=== PATIENT | female | born 1970 | race Caucasian/White ===

== ENCOUNTER 2018-01-04 19:41 | Inpatient (IN) | payer OTHER ==
[~2018-01-04] VITALS: Ht 157.5 cm; Wt 82.5 kg
[2018-01-04] MEDS ORDERED: HYDROCODONE/ACETAMIN 5/325MG TAB PO STA (20:16)
[2018-01-04] MEDS ORDERED: ONDANSETRON 4MG OD TAB PO ONE (20:30)
--- NOTE | 2018-01-04 20:42 | DIAGNOSTIC IMAGING REPORT ---
CHEST ONE VIEW PORTABLE CLINICAL HISTORY: severe hypertension COMPARISON STUDY: No previous studies for comparison. FINDINGS: The cardiac and mediastinal contours are normal. There is no evidence of focal pulmonary consolidation. There is no evidence of failure. No pleural effusions are visualized.[ IMPRESSION: No active disease in the chest. Electronically signed by: Bernard Blackmon M.D. 01/04/2018 8:41 PM Dictated Date/Time: 01/04/2018 8:41 PM
[2018-01-04] MEDS ORDERED: CETI10TA10 PO (20:52)
[2018-01-04 20:57] LABS: HEMATOCRIT 39.5 % (37-47); HEMOGLOBIN 14.2 g/dL (12.0-16.0); LYMPH % 5.6 %; LYMPH ABS # 0.67 K/uL (1.2-3.4); MEAN CELL VOLUME 81.3 fL (80-100); MEAN CORPUSCULAR HEMOGLOBIN 29.2 pg (25-34); MEAN CORPUSCULAR HGB CONC 35.9 g/dl (32-36); MEAN PLATELET VOLUME 10.1 fL (7.4-10.4); MONO % 2.4 %; MONO ABS # 0.28 K/uL (0.11-0.59); NEUT % 91.2 %; NEUT ABS # 10.81 K/uL (1.4-6.5); PLATELET COUNT 225 K/uL (130-400); RED CELL DISTRIBUTION WIDTH CV 13.3 % (11.5-14.5); RED CELL DISTRIBUTION WIDTH SD 39.3 fL (36.4-46.3); WHITE BLOOD COUNT 11.86 K/uL (4.8-10.8)
[2018-01-04 21:11] LABS: INR 0.9 (0.9-1.1); PTT PATIENT 22.5 SECONDS (21.0-31.0)
[2018-01-04 21:45] LABS: ALBUMIN 3.9 gm/dl (3.4-5.0); ALKALINE PHOSPHATASE 108 U/L (45-117); ALT/SGPT 155 U/L (12-78); BLOOD UREA NITROGEN 13 mg/dl (7-18); CALCIUM 9.6 mg/dl (8.5-10.1); CARBON DIOXIDE 20 mmol/L (21-32); CREATININE 1.22 mg/dl (0.60-1.20); GLUCOSE 485 mg/dl (70-99); LIPASE 139 U/L (73-393); SODIUM 134 mmol/L (136-145); TOTAL PROTEIN 7.8 gm/dl (6.4-8.2)
[2018-01-04 22:09] LABS: AST/SGOT 72 U/L (15-37); POTASSIUM 4.5 mmol/L (3.5-5.1)
[2018-01-04] MEDS ORDERED: SODIUM CHLORIDE 0.9% 1000ML 1,000 ML IV STA (22:28)
[2018-01-04] MEDS ORDERED: NovoLIN-R INSULIN PER UNIT CHARGE IV STA (22:28)
[2018-01-04] MEDS ORDERED: LISINOPRIL/HCTZ 10/12.5MG TAB PO STA (22:28)
[2018-01-05] VITALS (8 sets, daily range): BP systolic 118–149; BP diastolic 74–92; PULSE 71–87; TEMP 36.5–36.9; O2SAT 93–97; Ht 157.5 cm; Wt 82.5 kg
--- NOTE | 2018-01-05 00:06 | EMERGENCY ROOM VISIT NOTE ---
History Report prepared by Linda: Cori Combs Under the Supervision of: Dr. Kennedy Brizuela M.D. First contact with patient: 20:10 Chief Complaint: HYPERTENSION Stated Complaint: HIGH BP History of Present Illness The patient is a 47 year old female who presents to the Emergency Room with complaints of hypertension beginning today. The patient states that she had a torn rotator cuff surgery repair this morning done [place] [facility] [place] Per family, the patient's blood pressure was high prior to surgery at 214/120. Her family reports that the patient was given blood pressure medication through her IV when she was under during surgery. Per family, the patient was then told to follow up with her doctor for her hypertension. The patient states that she is usually normotensive and that she does not take medications for hypertension. Her family states that he took the patient's blood pressure a little while ago and that she was 220//130. Per family, the patient called [facility] and was referred here. Per family, the patient has been on Tramadol for pain. The patient states that she was sick 4-5 days ago and states that it may have been secondary to the Tramadol. She states that she was dizzy and had a headache a couple of days ago. She reports that she currently has a headache but did not have one prior to her surgery. She states that she was supposed to take hydrocodone at 1900 for her pain but that she did not take it before she left. She reports a family history of hypertension. Pt denies LOC, fevers, chills, diaphoresis, visual changes, neck pain, chest pain, breathing difficulties, nausea, vomiting, abdominal pain, back pain, numbness, weakness, lymphadenopathy , rash, or other complaints. Source of History: patient, family Onset: today Position: other (generalized) Quality: other (hypertension) Associated Symptoms: + headache, No fevers Note: dizziness Review of Systems See HPI for pertinent positives and negatives. A total of ten systems were reviewed and were otherwise negative. Past Medical & Surgical Medical Problems: (1) Asthma Surgical Problems: (1) S/P cholecystectomy (2) S/P rotator cuff repair (3) S/P tonsillectomy Family History Hypertension Social History Smoking Status: Never Smoker Marital Status: Current/Historical Medications Scheduled Cetirizine Hcl (Zyrtec), 10 MG PO DAILY Allergies Uncoded Allergies: NONE (Allergy, Mild, NONE, 11/21/09) UNKNOWN (Allergy, Unknown, 07/25/02) Physical Exam Vital Signs Date Time Temp Pulse Resp B/P (MAP) Pulse Ox O2 Delivery O2 Flow Rate FiO2 01/05/18 00:31 92 14 130/93 01/05/18 00:21 90 15 01/05/18 00:16 89 18 01/05/18 00:06 87 25 01/05/18 00:01 89 17 145/86 01/04/18 23:51 88 21 01/04/18 23:46 90 20 01/04/18 23:36 91 17 01/04/18 23:31 89 19 141/85 01/04/18 23:21 91 14 01/04/18 23:16 93 18 01/04/18 23:09 148/92 01/04/18 23:08 94 20 148/92 97 Room Air 01/04/18 23:06 93 18 01/04/18 23:01 90 21 01/04/18 22:51 94 19 01/04/18 22:41 93 21 01/04/18 22:36 96 16 01/04/18 22:26 94 16 96 Room Air 01/04/18 22:21 96 20 01/04/18 22:11 100 15 162/101 96 Room Air 01/04/18 22:06 96 20 01/04/18 21:56 98 21 01/04/18 21:51 97 18 01/04/18 21:41 99 25 01/04/18 21:36 99 23 01/04/18 21:26 101 19 01/04/18 21:21 99 27 01/04/18 21:16 104 01/04/18 20:25 97 Room Air 01/04/18 20:25 97 Room Air 01/04/18 19:53 36.9 123 18 195/104 96 Room Air Physical Exam GENERAL: Awake, alert, well-appearing, in no distress HENT: Normocephalic, atraumatic. Oropharynx unremarkable. EYES: Normal conjunctiva. Sclera non-icteric. NECK: Supple. No nuchal rigidity. FROM. No masses. RESPIRATORY: Clear to auscultation. No wheezes. No rales. Normal respiratory effort. CARDIAC: Normal rate. Normal rhythm. No murmurs. No rubs. Extremities warm and well perfused. Pulses equal. No JVD. GI: Soft, non-distended. No tenderness to palpation. No rebound or guarding. No masses. RECTAL: Deferred. MUSCULOSKELETAL: Atraumatic. Chest examination reveals no tenderness. The back is symmetrical on inspection without obvious abnormality. There is no CVA tenderness to palpation. No joint edema. UPPER EXTREMITIES: Right upper extremity in sling. Decreased sensation in right upper extremity. LOWER EXTREMITIES: Calves are equal size bilaterally and non-tender. No edema. No discoloration. NEURO: Normal sensorium. No sensory or motor deficits noted. SKIN: No rash or jaundice noted. Medical Decision & Procedures ER Provider Diagnostic Interpretation: Radiology results as stated below per my review and radiologist interpretation: CHEST ONE VIEW PORTABLE CLINICAL HISTORY: severe hypertension COMPARISON STUDY: No previous studies for comparison. FINDINGS: The cardiac and mediastinal contours are normal. There is no evidence of focal pulmonary consolidation. There is no evidence of failure. No pleural effusions are visualized.[ IMPRESSION: No active disease in the chest. Electronically signed by: Bernard Blackmon M.D. 01/04/2018 8:41 PM Dictated Date/Time: 01/04/2018 8:41 PM Laboratory Results 01/04/18 20:20 Red Blood Count 4.86, Mean Corpuscular Volume 81.3, Mean Corpuscular Hemoglobin 29.2, Mean Corpuscular Hemoglobin Concent 35.9, Mean Platelet Volume 10.1, Neutrophils (%) (Auto) 91.2, Lymphocytes (%) (Auto) 5.6, Monocytes (%) (Auto) 2.4, Eosinophils (%) (Auto) 0.0, Basophils (%) (Auto) 0.0, Neutrophils # (Auto) 10.81, Lymphocytes # (Auto) 0.67, Monocytes # (Auto) 0.28, Eosinophils # (Auto) 0.00, Basophils # (Auto) 0.00 01/04/18 23:45 Test 01/04/18 20:20 01/04/18 23:45 01/05/18 01:01 White Blood Count 11.86 K/uL (4.8-10.8) Red Blood Count 4.86 M/uL (4.2-5.4) Hemoglobin 14.2 g/dL (12.0-16.0) Hematocrit 39.5 % (37-47) Mean Corpuscular Volume 81.3 fL (80-100) Mean Corpuscular Hemoglobin 29.2 pg (25-34) Mean Corpuscular Hemoglobin Concent 35.9 g/dl (32-36) Platelet Count 225 K/uL (130-400) Mean Platelet Volume 10.1 fL (7.4-10.4) Neutrophils (%) (Auto) 91.2 % Lymphocytes (%) (Auto) 5.6 % Monocytes (%) (Auto) 2.4 % Eosinophils (%) (Auto) 0.0 % Basophils (%) (Auto) 0.0 % Neutrophils # (Auto) 10.81 K/uL (1.4-6.5) Lymphocytes # (Auto) 0.67 K/uL (1.2-3.4) Monocytes # (Auto) 0.28 K/uL (0.11-0.59) Eosinophils # (Auto) 0.00 K/uL (0-0.5) Basophils # (Auto) 0.00 K/uL (0-0.2) RDW Standard Deviation 39.3 fL (36.4-46.3) RDW Coefficient of Variation 13.3 % (11.5-14.5) Immature Granulocyte % (Auto) 0.8 % Immature Granulocyte # (Auto) 0.10 K/uL (0.00-0.02) Prothrombin Time 9.6 SECONDS (9.0-12.0) Prothromb Time International Ratio 0.9 (0.9-1.1) Activated Partial Thromboplast Time 22.5 SECONDS (21.0-31.0) Partial Thromboplastin Ratio 0.9 Urine Color YELLOW Urine Appearance CLEAR (CLEAR) Urine pH 5.0 (4.5-7.5) Urine Specific [place] 1.031 (1.000-1.030) Urine Protein NEG (NEG) Urine Glucose (UA) 3+ (NEG) Urine Ketones 1+ (NEG) Urine Occult Blood NEG (NEG) Urine Nitrite NEG (NEG) Urine Bilirubin NEG (NEG) Urine Urobilinogen NEG (NEG) Urine Leukocyte Esterase NEG (NEG) Total Bilirubin 0.6 mg/dl (0.2-1) Direct Bilirubin 0.2 mg/dl (0-0.2) Aspartate Amino Transf (AST/SGOT) 72 U/L (15-37) Alanine Aminotransferase (ALT/SGPT) 155 U/L (12-78) Alkaline Phosphatase 108 U/L (45-117) Troponin I < 0.015 ng/ml (0-0.045) Total Protein 7.8 gm/dl (6.4-8.2) Albumin 3.9 gm/dl (3.4-5.0) Lipase 139 U/L (73-393) Thyroid Stimulating Hormone (TSH) 0.465 uIu/ml (0.300-4.500) Anion Gap 12.0 mmol/L (3-11) Est Creatinine Clear Calc Drug Dose 72.5 ml/min Estimated GFR () 82.7 Estimated GFR (Non- 71.3 BUN/Creatinine Ratio 11.6 (10-20) Calcium Level 8.5 mg/dl (8.5-10.1) Laboratory results reviewed by me Medications Administered Medications (Trade) Dose Ordered Sig/Carin Route Start Time Stop Time Status Last Admin Dose Admin Acetaminophen/ Hydrocodone Bitart (Jasper 5/325 Tab) 1 tab NOW STAT PO 01/04/18 20:16 01/04/18 20:17 DC 01/04/18 20:25 1 TAB Ondansetron HCl (Zofran Odt) 4 mg ONE ONCE PO 01/04/18 20:30 01/04/18 20:31 DC 01/04/18 20:24 4 MG Sodium Chloride 1,000 ml @ 999 mls/hr Q1H1M STAT IV 01/04/18 22:28 01/04/18 23:28 DC 01/04/18 22:46 999 MLS/HR Insulin Human Regular (novoLIN-R U-100 PER UNIT) 10 units NOW STAT IV 01/04/18 22:28 01/04/18 22:29 DC 01/04/18 22:45 10 UNITS HCTZ/Lisinopril (Prinzide 10-12.5MG Tab) 1 tab NOW STAT PO 01/04/18 22:28 01/04/18 22:29 DC 01/04/18 22:45 1 TAB Hydromorphone HCl (Dilaudid Inj) 0.5 mg NOW STAT IV 01/05/18 00:56 01/05/18 00:57 DC 01/05/18 01:00 0.5 MG ECG Per My Interpretation Indication: other (hypertension) Rate (beats per minute): 106 Rhythm: sinus tachycardia Findings: Q waves (Septal), other (left ventricular hypertrophy, no ST elevation, no ST depression, no PACs, no PVCs) ED Course 2011: The patient was evaluated in room C6. A complete history and physical exam was performed. 2016: Ordered Jasper 5/325 1 tab PO. 2029: Ordered Zofran Odt 4 mg PO. 2208: I checked on the patient. I discussed with Dr. Garcia who said that the patient can be started on Lisinopril, hydrochlorothiazide 10/12.5 and have the patient follow up in clinic. I reviewed her chart from an outpatient clinic and she has had elevated blood pressure over the last year. 8: Ordered Lisinopril/HCTZ 1 tab PO, Insulin Human Regular 10 units IV, and Sodium Chloride 1000 ml @ 999 mls/hr IV. 2245: I checked on the patient. She is good with the plan as far as medications go. 0030: Upon reexamination, the patient was resting. I discussed the test results and treatment plan with her. The patient will be evaluated for further management. Medical Decision Prior records/ancillary studies reviewed regarding the history above. Triage Nursing notes reviewed and agree them. Additional history obtained from the family. The patient's history was concerning for hypertension and recent surgery. Differential diagnosis: Etiologies such as hypertensive urgency, hypertensive emergency, benign hypertension, cardiovascular pathology, pheochromocytoma, electrolyte abnormality, renal disease, endorgan damage, as well as others were entertained. Physical examination: As above. ER treatment provided: Oral hydrocodone On reassessment the patient felt better. IV normal saline hydration IV insulin 10 units Oral lisinopril 10 mg/hydrochlorothiazide 12.5 mg Diagnostic interpretation by me: The electrocardiogram was negative for pathologic change. The labs revealed a mild leukocytosis on CBC. Chemistry panel revealed moderate hyperglycemia. The patient has no known history of diabetes but does have a strong family history. She was on steroids over a week ago. The patient had a mildly low CO2 and slightly elevated anion gap. Her beta hydroxybutyrate was minimally elevated. Imaging studies: Chest x-ray as above The patient has hypertension. Record review indicates that she has had elevated blood pressure measurements for over 10 years. The patient has an elevated blood glucose as well. Findings are concerning that she has diabetes. She has been recently on steroids which could affect her blood glucose. She was hydrated and given IV insulin. The patient had a repeat chemistry panel performed. I did discuss her case with the [facility] hospitalist, Dr. Garcia for review of her outpatient medical records. The patient had blood pressure measurements in the 140s last year. She will need close clinic follow-up. We did discuss her hypertension and I felt that initiation of treatment based upon her record review was warranted and he agreed. He recommended lisinopril 10 mg/ hydrochlorothiazide 12.5 mg combination pill. I think this is very reasonable given the fact that her chemistry panel also revealed hyperglycemia. I discussed this with the patient and her and they felt very comfortable. The patient had repeat labs performed after the hydration and insulin. She was still found to have a low CO2 and elevated anion gap. She was still hyperglycemic. This is concerning. I discussed this with her even more. She has been experiencing polyuria and polydipsia this afternoon since her surgery. She has had the symptoms continue this evening here in the emergency department. Given the findings I am concerned about early DKA and talk to her and her about treatment in the hospital. They were comfortable with this plan. I did discuss this with Dr. Garcia and he was in agreement. The patient was evaluated in the ER for further management. Medication Reconcilliation Current Medication List: was personally reviewed by me Blood Pressure Screening Patient's blood pressure: Elevated blood pressure will be monitored by hospitalist Consults Time Called: 0020 Consulting Physician: Dr. Garcia-Kaden Returned Call: 0030 Discussed the patient's case. The patient will be evaluated for further treatment and disposition. Impression Primary Impression: DKA (diabetic ketoacidoses) Additional Impression: HTN (hypertension) Scribe Attestation The scribe's documentation has been prepared under my direction and personally reviewed by me in its entirety. I confirm that the note above accurately reflects all work, treatment, procedures, and medical decision making performed by me. Departure Information Dispostion Being Evaluated By Hospitalist Patient Instructions My [facility] Health Problem Qualifiers
[2018-01-05 00:13] LABS: CALCIUM 8.5 mg/dl (8.5-10.1); CREATININE 0.95 mg/dl (0.60-1.20); POTASSIUM 4.2 mmol/L (3.5-5.1)
[2018-01-05] MEDS ORDERED: HYDROmorphone INJ 0.5 MG/0.5 ML SYR IV STA (00:56)
[2018-01-05] MEDS ORDERED: SODIUM CHLORIDE 0.9% 1000ML 1,000 ML IV SCH ×2 (02:44→04:52)
[2018-01-05] MEDS ORDERED: ONDANSETRON INJ 2 MG/ML 2 ML VIAL IV PRN (02:45)
[2018-01-05] MEDS ORDERED: ALUMINUM/MAGNESIUM/SIMETH (MAALOX MAX) 30 ML UDC PO PRN (02:45)
[2018-01-05] MEDS ORDERED: ACETAMINOPHEN 325 MG TAB PO PRN (02:45)
[2018-01-05] MEDS ORDERED: NITROGLYCERIN 0.4 MG SL PER TAB CHARGE SL PRN (02:45)
[2018-01-05] MEDS ORDERED: POLYETHYLENE (MIRALAX) 17 GM PACK PO PRN (02:45)
[2018-01-05] MEDS ORDERED: ALBUTEROL HFA 8 GM INHALER INH PRN (03:00)
[2018-01-05] MEDS ORDERED: INSULIN ASPART 100 UNITS/ML 3 ML PEN SC STA ×3 (03:37→04:02)
[2018-01-05] MEDS ORDERED: INSULIN GLARGINE SOLOSTAR 100 UNITS/ML 3 ML PEN SC STA ×2 (04:00→13:52)
[2018-01-05] MEDS ORDERED: PHARMACY GLYCEMIC MGMT CONSULT PRN ×2 (04:01→05:00)
[2018-01-05] MEDS: HYDROCODONE/ACETAMIN 5/325MG TAB PO PRN ×5 (04:44→23:27)
[2018-01-05] MEDS ORDERED: INSULIN IV INFUSION PROTOCOL SCH (04:59)
[2018-01-05] MEDS ORDERED: DKA GOAL RANGE 150-250 mg/dl 1 EA ONE (05:00)
[2018-01-05] MEDS: PENDING D5 1/2NS+20mEq KCL IVF SCH ×4 (05:00→11:00)
[2018-01-05] MEDS ORDERED: DC ALL PREVIOUSLY ORDERED DIABETES MEDS ONE (05:00)
[2018-01-05] MEDS ORDERED: MODERATE STRESS LEVEL ONE (05:00)
[2018-01-05] MEDS ORDERED: PENDING NSS+20mEq KCL IVF SCH (05:00)
--- NOTE | 2018-01-05 05:01 | HISTORY & PHYSICAL EXAMINATION ---
DATE OF ADMISSION: 01/05/2018 CHIEF COMPLAINT: Uncontrolled hypertension and hyperglycemia. HISTORY OF PRESENT ILLNESS: This is a 47-year-old female with past medical history of asthma, allergic rhinitis, diagnosed with borderline diabetes about 4 years ago.and not following with any doctors for about four years but couple of weeks ago she started having left shoulder pain and saw the family doctor and also at that time blood pressure was in 130s, and she was prescribed Medrol Dosepak.[facility] and [facility] was done, which showed rotator cuff tear.Patient is is status post rotator cuff surgery today. Prior to surgery, she was noted to have blood pressures high and so she was given IV medication to control blood pressure during surgery and she was told to follow with her family doctor. After going home also her blood pressure was in 200s, so she came to the ER. In the ER systolic blood pressure of 190. She was given lisinopril-hydrochlorothiazide and blood pressure is improved now. Blood sugars were running in 485 and possible mild DKA and she was given a dose of 10 units of regular insulin and sugars came down to 320. Then we were called for admission. Currently resting comfortably. She was having some headaches and blurred vision since last 2 weeks and some dizziness too, denies any earaches, no runny nose, no sore throat, no difficulty swallowing. No cough, no fever, no chills, no chest pain, no shortness of breath, no nausea, no vomiting, no abdominal pain. Normal bowel and bladder movements. No blood in the stools, no blood in the urine. No swelling in the legs. No rash. Currently, resting comfortable and hemodynamically stable. ALLERGIES: No known drug allergies. PAST MEDICAL HISTORY: As mentioned above. PAST SURGICAL HISTORY: Rotator cuff surgery, , dental surgeries, laparoscopic fulguration of oviduct, tonsillectomy, gallbladder surgery, shoulder surgery, arthroscopy. MEDICATIONS: The patient is only on Zyrtec 10 mg p.o. daily, albuterol p.r.n. FAMILY HISTORY: Significant for mother who has allergies, diabetes, hypertension, and bipolar disorder. Father has hypertension. Sister has allergies, bipolar disorder. Daughter has diabetes. SOCIAL HISTORY: . No smoking history. Alcohol occasional. No drug abuse. REVIEW OF SYMPTOMS: As per HPI. Rest of review of systems negative. PHYSICAL EXAMINATION: GENERAL: The patient is of moderate build, not in distress. VITAL SIGNS: Temperature 36.9, pulse 86, respiratory rate 20, blood pressure when she came in was 195/104, currently 133/90, oxygen saturation 95% on room air. HEENT: No pallor, no icterus. Pupils equal, round, and react to light. NECK: No JVD, no neck masses. No carotid bruits. CARDIOVASCULAR: S1, S2 heard. Regular rate and rhythm, no murmur, no gallop. RESPIRATORY SYSTEM: Clear to auscultation bilaterally. No wheezing, no crackles. ABDOMEN: Soft, bowel sounds present. Nontender. No distention. CENTRAL NERVOUS SYSTEM: Cranial nerves II-XII grossly intact. Nonfocal. EXTREMITIES: Status post right shoulder surgery.No edema, no erythema. LABORATORIES: WBC 7.8, hemoglobin 14.2, hematocrit 39.5, platelets 225. Sodium 134, potassium 4.5, chloride 101, bicarbonate 20, BUN 13, creatinine 0.9, serum glucose 485. Total calcium 9.6, total bilirubin 0.6, direct bilirubin 0.2, AST 22, ALT 155, alkaline phosphatase 108. Troponin I less than 0.015. TSH 0.4. Chest x-ray: No acute active disease in the chest. EKG: Sinus tachycardia at a rate of 106. Non specific ST changes seen. ASSESSMENT AND PLAN: This is a 47-year-old female who presents with uncontrolled blood pressure and hyperglycemia. 1. Uncontrolled blood pressure. couple of weeks ago when seen by family doctor Blood pressure was ok.Was high prior to the shoulder surgery today. Could be from the pain, but blood pressure was still high post surgery, Blood pressure has come down now, will continue lisinopril/hctz . Will follow echocardiogram to rule out any left ventricular hypertrophy or any hypertensive heart disease. To continue lisinopril 10mg now.Monitor on the tele floor and adjust the blood pressure medications. 2. Possible early diabetic ketoacidosis, came with high blood sugars. The patient says she was diagnosed with borderline diabetes 4years ago but not followed on it. She was put on Medrol Dosepak a couple of weeks ago for shoulder pain. Initial blood sugar was 485 in the ER and anion gap 14 bicarbonate of 20. She was given 10 units of IV insulin. Sugars improved to 328 bicarb is 19, . Starting On DKA protocol insulin drip. IV fluids Pharmacy consult. Follow hb1c levels. Diabetic teaching. close f/u with PCP on discharge 3. Asthma. Albuterol as needed. 4. Allergic rhinitis on Zyrtec. 5. Deep venous thrombosis prophylaxis, sequential compression devices, and TEDs. DISPOSITION: Admit to tele floor. Expect to discharge home and follow with his family doctor. Level I full code. MTDD
[2018-01-05] MEDS ORDERED: INSULIN HUMAN REGULAR IV BOLUS 2 UNIT in SYRINGE 0 ML IV SCH (05:30)
[2018-01-05] MEDS: INSULIN REGULAR 250 UNITS in SODIUM CHLORIDE 0.9% 250ML 250 ML IV SCH ×6 (06:04→13:23)
[2018-01-05] MEDS ORDERED: INSULIN ASPART 100 UNITS/ML 3 ML PEN SC SCH (06:30)
[2018-01-05 06:48] LABS: CALCIUM 8.6 mg/dl (8.5-10.1); CREATININE 0.76 mg/dl (0.60-1.20); PHOSPHORUS 3.6 mg/dl (2.5-4.9); POTASSIUM 4.2 mmol/L (3.5-5.1)
[2018-01-05] MEDS ORDERED: NSS + 20MEQ KCL 1000ML 1,000 ML IV SCH (07:00)
[2018-01-05 07:01] LABS: HEMOGLOBIN A1C 8.5 % (4.5-5.6)
[2018-01-05] MEDS: LISINOPRIL 10 MG TAB PO SCH (07:52)
[2018-01-05] MEDS: CETIRIZINE HCL 10 MG TAB PO SCH (07:52)
[2018-01-05 08:28] LABS: CREATININE 0.51 mg/dl (0.60-1.20); POTASSIUM 3.3 mmol/L (3.5-5.1)
[2018-01-05] MEDS: INSULIN ASPART 100 UNITS/ML 3 ML PEN SC SCH ×4 (08:28→21:00)
[2018-01-05] MEDS ORDERED: POTASSIUM CHLORIDE 10 MEQ TABCR PO STA (09:45)
--- NOTE | 2018-01-05 10:45 | Pharmacy Progress Note ---
Glycemic Control Intl Consult Date of Service Jan 05, 2018. Scope Glycemic Pharmacist consulted by Dr Garcia on 01/05/18 for glycemic control and to write orders per [facility] inpatient glycemic control protocol Objective Weight (Kilograms): 81.300 Accuchecks BSG (last 24hrs): Test 01/04/18 20:20 01/04/18 23:45 01/05/18 03:44 01/05/18 03:45 Random Glucose 485 mg/dl (70-99) 328 mg/dl (70-99) Bedside Glucose 345 mg/dl (70-90) 357 mg/dl (70-90) Test 01/05/18 05:48 01/05/18 07:09 01/05/18 07:29 01/05/18 08:12 Random Glucose 307 mg/dl (70-99) 218 mg/dl (70-99) Bedside Glucose 276 mg/dl (70-90) 281 mg/dl (70-90) Test 01/05/18 09:12 01/05/18 10:10 Bedside Glucose 313 mg/dl (70-90) 282 mg/dl (70-90) Laboratory Data (last 24hrs) Test 01/04/18 20:20 01/04/18 23:45 01/05/18 05:48 01/05/18 07:29 Anion Gap 13.0 mmol/L 12.0 mmol/L 8.0 mmol/L 8.0 mmol/L BUN/Creatinine Ratio 10.2 11.6 13.6 17.3 Blood Urea Nitrogen 13 mg/dl 11 mg/dl 10 mg/dl 9 mg/dl Creatinine 1.22 mg/dl 0.95 mg/dl 0.76 mg/dl 0.51 mg/dl Potassium Level 4.5 mmol/L 4.2 mmol/L 4.2 mmol/L 3.3 mmol/L Sodium Level 134 mmol/L 137 mmol/L 134 mmol/L 141 mmol/L White Blood Count 11.86 K/uL Red Blood Count 4.86 M/uL Hemoglobin 14.2 g/dL Hematocrit 39.5 % Mean Corpuscular Volume 81.3 fL Mean Corpuscular Hemoglobin 29.2 pg Mean Corpuscular Hemoglobin Concent 35.9 g/dl Platelet Count 225 K/uL Mean Platelet Volume 10.1 fL Neutrophils (%) (Auto) 91.2 % Lymphocytes (%) (Auto) 5.6 % Monocytes (%) (Auto) 2.4 % Eosinophils (%) (Auto) 0.0 % Basophils (%) (Auto) 0.0 % Neutrophils # (Auto) 10.81 K/uL Lymphocytes # (Auto) 0.67 K/uL Monocytes # (Auto) 0.28 K/uL Eosinophils # (Auto) 0.00 K/uL Basophils # (Auto) 0.00 K/uL Hemoglobin A1c 8.5 % HbA1c Test 01/05/18 05:48 Hemoglobin A1c 8.5 % (4.5-5.6) H Recent Pertinent Medications Outpatient Anti-diabetic Regimen: * Nil glycemic medications * A1c = 8.5 % 01/05/18 Assessment & Plan ASSESSMENT: * Ms. Parkinson is a 47yo F p/w uncontrolled blood pressures (Sys BPs 200s) and hyperglycemia. Upon presentation her lab values were indicative of a mild DKA: Serum osmolality was WNL, BHB=6.2, AG=13, CO2=20, VBG pH=7.41. Initial BSG in the ED was in the 400s. * She was scheduled for a surgery at [facility] [place] but was referred to the ED for HTN, earlier on 01/04/18. She was diagnosed with diabetes 4 years ago but never followed up. She was prescribed a Medrol Dosepak for shoulder pxn 4 weeks ago. PLAN FOR INPATIENT GLYCEMIC CONTROL: * Starting IV insulin infusion per moderate stress protocol * Goal Range 150 - 250 mg/dl * In the critical care setting, continuous IV insulin infusion has been shown to be the best method for achieving glycemic targets. * Will delineate a conversion from insulin infsn to basal/bolus as her insulin requirements are determined: * Based on the insulin gtt rate over the previous 5 hours: I surmise her total daily insulin requirement is ~50units. I have ordered a STAT 15 unit lantus dose to aide in transitioning. I would trial a CF/CR of 20/7 for correctional insulin and 10-15units of additional lantus for HS tonight. * Please note that the plan above was derived based on current level of insulin resistance and hospital stress. These recommendations are appropriate for inpatient admission only. Plan of care upon discharge will need to be reassessed to avoid potential outpatient hypo/hyperglycemia. Thank you.
[2018-01-05] MEDS ORDERED: NURSING VERBAL MED ORDER ONE (11:15)
[2018-01-05] MEDS ORDERED: D5W AND 1/2NSS + 20MEQ KCL 1000 ML IV SCH (12:30)
[2018-01-05 12:48] LABS: CALCIUM 8.5 mg/dl (8.5-10.1); CREATININE 0.71 mg/dl (0.60-1.20); PHOSPHORUS 3.1 mg/dl (2.5-4.9); POTASSIUM 4.4 mmol/L (3.5-5.1)
[2018-01-05 16:36] LABS: CALCIUM 8.8 mg/dl (8.5-10.1); CREATININE 0.82 mg/dl (0.60-1.20); POTASSIUM 4.1 mmol/L (3.5-5.1)
[2018-01-05] MEDS ORDERED: INSULIN GLARGINE SOLOSTAR 100 UNITS/ML 3 ML PEN SC ONE (18:30)
[2018-01-05] MEDS: NSS + 20MEQ KCL 1000ML 1,000 ML IV SCH (18:35)
[2018-01-05 20:38] LABS: CALCIUM 8.5 mg/dl (8.5-10.1); CREATININE 1.01 mg/dl (0.60-1.20); PHOSPHORUS 2.7 mg/dl (2.5-4.9); POTASSIUM 3.9 mmol/L (3.5-5.1)
[2018-01-05] MEDS ORDERED: INSULIN GLARGINE SOLOSTAR 100 UNITS/ML 3 ML PEN SC SCH (21:00)
[2018-01-05] MEDS ORDERED: GLUCOSE 10 TABS/TUBE PO PRN (23:15)
[2018-01-05] MEDS ORDERED: CARBOHYDRATES FOR HYPOGLYCEMIA PO PRN (23:15)
[2018-01-05] MEDS ORDERED: GLUCAGON FOR INJ 1 MG VIAL IM PRN (23:15)
[2018-01-05] MEDS ORDERED: DEXTROSE 50% 50 ML SYR IV PRN (23:15)
[2018-01-05] MEDS ORDERED: GLUCOSE 40% GEL 15 GM TUBE PO PRN (23:15)
[2018-01-06 00:33] LABS: CALCIUM 8.1 mg/dl (8.5-10.1); CREATININE 0.71 mg/dl (0.60-1.20); POTASSIUM 4.1 mmol/L (3.5-5.1)
[2018-01-06] MEDS ORDERED: INSULIN ASPART 100 UNITS/ML 3 ML PEN SC ONE (02:00)
[2018-01-06 04:17] LABS: BASO % 0.3 %; BASO ABS # 0.03 K/uL (0-0.2); EOS ABS # 0.12 K/uL (0-0.5); HEMATOCRIT 33.9 % (37-47); HEMOGLOBIN 11.5 g/dL (12.0-16.0); IG# 0.05 K/uL (0.00-0.02); LYMPH % 33.9 %; LYMPH ABS # 3.93 K/uL (1.2-3.4); MEAN CELL VOLUME 84.1 fL (80-100); MEAN CORPUSCULAR HEMOGLOBIN 28.5 pg (25-34); MEAN CORPUSCULAR HGB CONC 33.9 g/dl (32-36); MEAN PLATELET VOLUME 9.4 fL (7.4-10.4); MONO % 8.1 %; MONO ABS # 0.94 K/uL (0.11-0.59); NEUT % 56.3 %; NEUT ABS # 6.52 K/uL (1.4-6.5); PLATELET COUNT 186 K/uL (130-400); RED CELL DISTRIBUTION WIDTH CV 13.9 % (11.5-14.5); RED CELL DISTRIBUTION WIDTH SD 42.6 fL (36.4-46.3); WHITE BLOOD COUNT 11.59 K/uL (4.8-10.8)
[2018-01-06 04:36] LABS: CALCIUM 8.1 mg/dl (8.5-10.1); CREATININE 0.76 mg/dl (0.60-1.20); PHOSPHORUS 2.8 mg/dl (2.5-4.9); POTASSIUM 4.4 mmol/L (3.5-5.1)
[2018-01-06] MEDS: HYDROCODONE/ACETAMIN 5/325MG TAB PO PRN ×2 (05:51→13:05)
[2018-01-06] MEDS: NSS + 20MEQ KCL 1000ML 1,000 ML IV SCH (05:52)
[2018-01-06 07:00] VITALS: BP 129/76; PULSE 78; TEMP 36.7; O2SAT 95
[2018-01-06] MEDS: CETIRIZINE HCL 10 MG TAB PO SCH (07:25)
[2018-01-06] MEDS: LISINOPRIL 10 MG TAB PO SCH (07:25)
[2018-01-06] MEDS: INSULIN ASPART 100 UNITS/ML 3 ML PEN SC SCH ×2 (08:08→12:22)
[2018-01-06 10:30] VITALS: BP 129/76; PULSE 78; TEMP 36.7; O2SAT 95
[2018-01-06] MEDS ORDERED: METFORMIN HCL 500 MG TABCR PO SCH ×2 (11:00→14:30)
[2018-01-06 11:42] VITALS: BP 124/84; PULSE 78; TEMP 36.8; O2SAT 95
--- NOTE | 2018-01-06 12:50 | Progress Note ---
Internal Med Progress Note Date of Service: Jan 05, 2018. Provider Documentation: SUBJECTIVE: The patient was seen and examined in telemetry unit She was admitted with them uncontrolled hypertension and noted to have very high blood sugar on admission Has been feeling a lot better since admission Denies any symptoms this morning &/28 Denies any symptoms Ambulating and tolerating regular diet OBJECTIVE: Vital Signs-as noted below Exam: General-no apparent distress at rest Eyes-normal ENT-normal Neck-supple Lungs-clear to auscultate bilaterally Heart-regular Abdomen-benign Extremities-negative for any edema Left upper extremity is in sling Neuro-alert, awake and oriented 3 No focal sensory and motor deficit appreciated Lab data as noted below. ASSESSMENT & PLAN: This is a 47-year-old female who presents with uncontrolled blood pressure and hyperglycemia. Uncontrolled blood pressure. Has history of high blood pressure but not been on any medications Blood pressure noted to be very high following left shoulder surgery She has not started with lisinopril orally and also as needed prn antihypertensive medication Blood pressure is controlled today Remians controlled Uncontrolled diabetes Possible early diabetic ketoacidosis, came with high blood sugars. Has history of prediabetes and not been following any diet and/or taking any medications Initial blood sugar was 485 in the ER and anion gap 14 bicarbonate of 20. She was started with intravenous insulin to prevent further complication like diabetic ketoacidosis Likely to need oral hypoglycemics on discharge Appreciate pharmacy input Will discharge on Metformin and Glyburide Asthma. Albuterol as needed. Allergic rhinitis on Zyrtec. Deep venous thrombosis prophylaxis, sequential compression devices, and TEDs. DISPOSITION: Admit to tele floor. Expect to discharge home and follow with his family doctor. Level I full code. Discharge today Vital Signs: Date Time Temp Pulse Resp B/P (MAP) Pulse Ox O2 Delivery O2 Flow Rate FiO2 01/06/18 11:42 36.8 78 18 124/84 (97) 95 Room Air 01/06/18 10:30 36.7 78 18 95 Room Air 01/06/18 08:00 Room Air 01/06/18 07:00 36.7 78 18 129/76 (93) 95 Room Air 01/05/18 23:52 36.7 71 18 129/82 (98) 94 Room Air 01/05/18 19:39 36.6 81 18 131/83 (99) 93 Room Air 01/05/18 19:30 Room Air 01/05/18 16:00 Room Air 01/05/18 16:00 36.6 80 18 136/86 (103) 94 Room Air Lab Results: Results Past 24 Hours Test 01/05/18 13:11 01/05/18 14:13 01/05/18 15:11 01/05/18 15:59 Range/Units Bedside Glucose 278 273 273 70-90 mg/dl Venous Blood pH 7.42 7.36-7.41 Sodium Level 136 136-145 mmol/L Potassium Level 4.1 3.5-5.1 mmol/L Chloride Level 104 98-107 mmol/L Carbon Dioxide Level 25 21-32 mmol/L Anion Gap 7.0 3-11 mmol/L Blood Urea Nitrogen 11 7-18 mg/dl Creatinine 0.82 0.60-1.20 mg/dl Est Creatinine Clear Calc Drug Dose 83.8 ml/min Estimated GFR () 98.8 Estimated GFR (Non- 85.2 BUN/Creatinine Ratio 12.9 10-20 Random Glucose 237 70-99 mg/dl Calcium Level 8.8 8.5-10.1 mg/dl Phosphorus Level 3.0 2.5-4.9 mg/dl Magnesium Level 2.0 1.8-2.4 mg/dl Test 01/05/18 16:13 01/05/18 17:14 01/05/18 18:11 01/05/18 19:11 Range/Units Bedside Glucose 246 233 303 265 70-90 mg/dl Test 01/05/18 20:06 01/05/18 20:11 01/05/18 21:00 01/05/18 22:57 Range/Units Venous Blood pH 7.44 7.36-7.41 Sodium Level 137 136-145 mmol/L Potassium Level 3.9 3.5-5.1 mmol/L Chloride Level 104 98-107 mmol/L Carbon Dioxide Level 26 21-32 mmol/L Anion Gap 7.0 3-11 mmol/L Blood Urea Nitrogen 13 7-18 mg/dl Creatinine 1.01 0.60-1.20 mg/dl Est Creatinine Clear Calc Drug Dose 68.0 ml/min Estimated GFR () 76.8 Estimated GFR (Non- 66.2 BUN/Creatinine Ratio 13.2 10-20 Random Glucose 243 70-99 mg/dl Calcium Level 8.5 8.5-10.1 mg/dl Phosphorus Level 2.7 2.5-4.9 mg/dl Magnesium Level 1.9 1.8-2.4 mg/dl Bedside Glucose 250 217 191 70-90 mg/dl Test 01/05/18 23:56 01/06/18 02:03 01/06/18 04:08 01/06/18 07:21 Range/Units Venous Blood pH 7.41 7.38 7.36-7.41 Sodium Level 137 138 136-145 mmol/L Potassium Level 4.1 4.4 3.5-5.1 mmol/L Chloride Level 105 106 98-107 mmol/L Carbon Dioxide Level 25 26 21-32 mmol/L Anion Gap 7.0 6.0 3-11 mmol/L Blood Urea Nitrogen 13 12 7-18 mg/dl Creatinine 0.71 0.76 0.60-1.20 mg/dl Est Creatinine Clear Calc Drug Dose 96.8 90.4 ml/min Estimated GFR () 117.6 108.3 Estimated GFR (Non- 101.4 93.4 BUN/Creatinine Ratio 18.7 15.3 10-20 Random Glucose 178 184 70-99 mg/dl Calcium Level 8.1 8.1 8.5-10.1 mg/dl Phosphorus Level 3.0 2.8 2.5-4.9 mg/dl Magnesium Level 1.9 1.9 1.8-2.4 mg/dl Bedside Glucose 195 179 70-90 mg/dl White Blood Count 11.59 4.8-10.8 K/uL Red Blood Count 4.03 4.2-5.4 M/uL Hemoglobin 11.5 12.0-16.0 g/dL Hematocrit 33.9 37-47 % Mean Corpuscular Volume 84.1 80-100 fL Mean Corpuscular Hemoglobin 28.5 25-34 pg Mean Corpuscular Hemoglobin Concent 33.9 32-36 g/dl Platelet Count 186 130-400 K/uL Mean Platelet Volume 9.4 7.4-10.4 fL Neutrophils (%) (Auto) 56.3 % Lymphocytes (%) (Auto) 33.9 % Monocytes (%) (Auto) 8.1 % Eosinophils (%) (Auto) 1.0 % Basophils (%) (Auto) 0.3 % Neutrophils # (Auto) 6.52 1.4-6.5 K/uL Lymphocytes # (Auto) 3.93 1.2-3.4 K/uL Monocytes # (Auto) 0.94 0.11-0.59 K/uL Eosinophils # (Auto) 0.12 0-0.5 K/uL Basophils # (Auto) 0.03 0-0.2 K/uL RDW Standard Deviation 42.6 36.4-46.3 fL RDW Coefficient of Variation 13.9 11.5-14.5 % Immature Granulocyte % (Auto) 0.4 % Immature Granulocyte # (Auto) 0.05 0.00-0.02 K/uL Test 01/06/18 11:22 Range/Units Bedside Glucose 180 70-90 mg/dl
[2018-01-06] MEDS ORDERED: LSN10 PO (13:08)
[2018-01-06] MEDS ORDERED: GLC5 PO (13:08)
[2018-01-06] MEDS ORDERED: GLCSR500 PO (13:08)
--- NOTE | 2018-01-06 13:10 | Discharge Instructions ---
Discharge Instructions Date of Service Jan 06, 2018. Admission Reason for Admission: Hyperglycemia,Uncontrolled Hypertension Discharge Discharge Diagnosis / Problem: Uncontrolled DM and HTN Discharge Goals Goal(s): Prevent Disease Progression Activity Recommendations Activity Limitations: resume your previous activity . Instructions / Follow-Up Instructions / Follow-Up Dr Hinds on 01/10/18 at 9:45 AM. Current Hospital Diet Patient's current hospital diet: AHA Diet (Heart Healthy), Diabetes Type 2 Diet Discharge Diet Recommended Diet: Diabetes Type 2 Diet Pending Studies Studies pending at discharge: no Laboratory Results Hemoglobin A1c Test 01/05/18 05:48 Range/Units Estimated Average Glucose 197 mg/dl Hemoglobin A1c 8.5 H 4.5-5.6 % Lipid Panel Test 01/05/18 05:48 Range/Units Triglycerides Level 224 H 0-150 mg/dl Cholesterol Level 193 0-200 mg/dl HDL Cholesterol 30 mg/dl Cholesterol/HDL Ratio 6.4 LDL Cholesterol, Calculated 118 mg/dl Medical Emergencies . Who to Call and When: Medical Emergencies: If at any time you feel your situation is an emergency, please call 911 immediately. . Non-Emergent Contact Non-Emergency issues call your: Primary Care Provider . Past History Medical & Surgical History: (1) HTN (hypertension) (2) Hyperglycemia (3) Uncontrolled hypertension (4) Asthma . "Provider Documentation" section prepared by Sasha Rosales. .
[2018-01-06] MEDS ORDERED: NURSING VERBAL MED ORDER ONE (13:45)
[2018-01-06] MEDS ORDERED: LISINOPRIL 10 MG TAB PO SCH (14:30)
--- NOTE | 2018-01-07 08:38 | Discharge Summary ---
Discharge Summary Date of Service Jan 07, 2018. Discharge Summary Admission Date: Jan 05, 2018 at 02:49 Discharge Date: Jan 06, 2018 Discharge Disposition: Home Principal Diagnosis: Hyperglycemia,Uncontrolled Hypertension Secondary Diagnoses/Problems: Please see H&P and Hospital progress note Medication Reconciliation New Medications: Glipizide (Glipizide) 5 Mg Tab 5 MG PO QDB for 30 Days, #30 TAB Lisinopril (Zestril) 10 Mg Tab 10 MG PO QAM for 30 Days, #30 TAB Metformin HCl (Metformin HCl ER) 500 Mg Tabcr 500 MG PO QDB for 30 Days, #30 TAB Can be increased subsequently Continued Medications: Cetirizine Hcl (Zyrtec) 10 Mg Tab 10 MG PO DAILY, TAB Admission Information HPI (per Admitting provider): DATE OF ADMISSION: 01/05/2018 CHIEF COMPLAINT: Uncontrolled hypertension and hyperglycemia. HISTORY OF PRESENT ILLNESS: This is a 47-year-old female with past medical history of asthma, allergic rhinitis, diagnosed with borderline diabetes about 4 years ago.and not following with any doctors for about four years but couple of weeks ago she started having left shoulder pain and saw the family doctor and also at that time blood pressure was in 130s, and she was prescribed Medrol Dosepak.She saw [facility] and MRI was done, which showed rotator cuff tear.Patient is is status post rotator cuff surgery today. Prior to surgery, she was noted to have blood pressures high and so she was given IV medication to control blood pressure during surgery and she was told to follow with her family doctor. After going home also her blood pressure was in 200s, so she came to the ER. In the ER systolic blood pressure of 190. She was given lisinopril-hydrochlorothiazide and blood pressure is improved now. Blood sugars were running in 485 and possible mild DKA and she was given a dose of 10 units of regular insulin and sugars came down to 320. Then we were called for admission. Currently resting comfortably. She was having some headaches and blurred vision since last 2 weeks and some dizziness too, denies any earaches, no runny nose, no sore throat, no difficulty swallowing. No cough, no fever, no chills, no chest pain, no shortness of breath, no nausea, no vomiting, no abdominal pain. Normal bowel and bladder movements. No blood in the stools, no blood in the urine. No swelling in the legs. No rash. Currently, resting comfortable and hemodynamically stable. ALLERGIES: No known drug allergies. PAST MEDICAL HISTORY: As mentioned above. PAST SURGICAL HISTORY: Rotator cuff surgery, , dental surgeries, laparoscopic fulguration of oviduct, tonsillectomy, gallbladder surgery, shoulder surgery, arthroscopy. MEDICATIONS: The patient is only on Zyrtec 10 mg p.o. daily, albuterol p.r.n. FAMILY HISTORY: Significant for mother who has allergies, diabetes, hypertension, and bipolar disorder. Father has hypertension. Sister has allergies, bipolar disorder. Daughter has diabetes. SOCIAL HISTORY: . No smoking history. Alcohol occasional. No drug abuse. REVIEW OF SYMPTOMS: As per HPI. Rest of review of systems negative. PHYSICAL EXAMINATION: GENERAL: The patient is of moderate build, not in distress. VITAL SIGNS: Temperature 36.9, pulse 86, respiratory rate 20, blood pressure when she came in was 195/104, currently 133/90, oxygen saturation 95% on room air. HEENT: No pallor, no icterus. Pupils equal, round, and react to light. NECK: No JVD, no neck masses. No carotid bruits. CARDIOVASCULAR: S1, S2 heard. Regular rate and rhythm, no murmur, no gallop. RESPIRATORY SYSTEM: Clear to auscultation bilaterally. No wheezing, no crackles. ABDOMEN: Soft, bowel sounds present. Nontender. No distention. CENTRAL NERVOUS SYSTEM: Cranial nerves II-XII grossly intact. Nonfocal. EXTREMITIES: Status post right shoulder surgery.No edema, no erythema. LABORATORIES: WBC 7.8, hemoglobin 14.2, hematocrit 39.5, platelets 225. Sodium 134, potassium 4.5, chloride 101, bicarbonate 20, BUN 13, creatinine 0.9, serum glucose 485. Total calcium 9.6, total bilirubin 0.6, direct bilirubin 0.2, AST 22, ALT 155, alkaline phosphatase 108. Troponin I less than 0.015. TSH 0.4. Chest x-ray: No acute active disease in the chest. EKG: Sinus tachycardia at a rate of 106. Non specific ST changes seen. ASSESSMENT AND PLAN: This is a 47-year-old female who presents with uncontrolled blood pressure and hyperglycemia. 1. Uncontrolled blood pressure. couple of weeks ago when seen by family doctor Blood pressure was ok.Was high prior to the shoulder surgery today. Could be from the pain, but blood pressure was still high post surgery, Blood pressure has come down now, will continue lisinopril/hctz . Will follow echocardiogram to rule out any left ventricular hypertrophy or any hypertensive heart disease. To continue lisinopril 10mg now.Monitor on the tele floor and adjust the blood pressure medications. 2. Possible early diabetic ketoacidosis, came with high blood sugars. The patient says she was diagnosed with borderline diabetes 4years ago but not followed on it. She was put on Medrol Dosepak a couple of weeks ago for shoulder pain. Initial blood sugar was 485 in the ER and anion gap 14 bicarbonate of 20. She was given 10 units of IV insulin. Sugars improved to 328 bicarb is 19, . Starting On DKA protocol insulin drip. IV fluids Pharmacy consult. Follow hb1c levels. Diabetic teaching. close f/u with PCP on discharge 3. Asthma. Albuterol as needed. 4. Allergic rhinitis on Zyrtec. 5. Deep venous thrombosis prophylaxis, sequential compression devices, and TEDs. DISPOSITION: Admit to tele floor. Expect to discharge home and follow with his family doctor. Level I full code. Dictated: 01/05/18 0257 Transcribed: 01/05/18 0500 <Electronically signed by Sal Garcia MD> Signed: 01/05/18 0803 ES Sal Garcia MD Hospital Course This is a 47-year-old female who presents with uncontrolled blood pressure and hyperglycemia. Uncontrolled blood pressure. Has history of high blood pressure but not been on any medications Blood pressure noted to be very high following left shoulder surgery She has not started with lisinopril orally and also as needed prn antihypertensive medication Blood pressure is controlled today Remians controlled Uncontrolled diabetes Possible early diabetic ketoacidosis, came with high blood sugars. Has history of prediabetes and not been following any diet and/or taking any medications Initial blood sugar was 485 in the ER and anion gap 14 bicarbonate of 20. She was started with intravenous insulin to prevent further complication like diabetic ketoacidosis Likely to need oral hypoglycemics on discharge Appreciate pharmacy input Will discharge on Metformin and Glyburide Asthma. Albuterol as needed. Allergic rhinitis on Zyrtec. Deep venous thrombosis prophylaxis, sequential compression devices, and TEDs. DISPOSITION: Admit to tele floor. Expect to discharge home and follow with his family doctor. Level I full code. Discharge today Total time spent on discharge = 35 minutes This includes examination of the patient, discharge planning, medication reconciliation, and communication with other providers. Discharge Instructions Date of Service Jan 06, 2018. Admission Reason for Admission: Hyperglycemia,Uncontrolled Hypertension Discharge Discharge Diagnosis / Problem: Uncontrolled DM and HTN Discharge Goals Goal(s): Prevent Disease Progression Activity Recommendations Activity Limitations: resume your previous activity . Instructions / Follow-Up Instructions / Follow-Up Dr Hinds on 01/10/18 at 9:45 AM. Current Hospital Diet Patient's current hospital diet: AHA Diet (Heart Healthy), Diabetes Type 2 Diet Discharge Diet Recommended Diet: Diabetes Type 2 Diet Pending Studies Studies pending at discharge: no Laboratory Results Hemoglobin A1c Test 01/05/18 05:48 Range/Units Estimated Average Glucose 197 mg/dl Hemoglobin A1c 8.5 H 4.5-5.6 % Lipid Panel Test 01/05/18 05:48 Range/Units Triglycerides Level 224 H 0-150 mg/dl Cholesterol Level 193 0-200 mg/dl HDL Cholesterol 30 mg/dl Cholesterol/HDL Ratio 6.4 LDL Cholesterol, Calculated 118 mg/dl Medical Emergencies . Who to Call and When: Medical Emergencies: If at any time you feel your situation is an emergency, please call 911 immediately. . Non-Emergent Contact Non-Emergency issues call your: Primary Care Provider . Past History Medical & Surgical History: (1) HTN (hypertension) (2) Hyperglycemia (3) Uncontrolled hypertension (4) Asthma . "Provider Documentation" section prepared by Sasha Rosales. . <Electronically signed by Sasha Rosales M.D.> Signed: 01/06/18 1310 Additional Copies To Parvez Hinds M.D. ([facility])
--- NOTE | 2018-01-09 15:11 | ECHOCARDIOGRAM REPORT ---
*NOTICE TO RECEIVING [employer] This information is strictly Confidential and protected under [place] law. [place] law prohibits you from making any further disclosure of this information unless further disclosure is expressly permitted by the written consent of the person to whom it pertains or is authorized by law. A general authorization for the release of medical or other information is not sufficient for this purpose. Hospital accepts no responsibility if the information is made available to any other person, INCLUDING THE PATIENT. Interpretation Summary * Name: DESHAWN WADE Study Date: 01/05/2018 10:34 AM BP: 149/92 mmHg * Patient Location: [facility]\S\N282\S\1 HR: 87 * : 1970 (M/d/yyyy) Gender: Female Height: 62 in * Age: 47 yrs Ethnicity: [place] Weight: 180 lb * Ordering Physician: Sal Garcia * Referring Physician: Self, Referred * Performed By: Navya Xie RDCS * * Reason For Study: Hypertension, Heart Disease * BSA: 1.8 m2 * -- Conclusions -- * The left ventricle is normal in size. * Left ventricular systolic function is normal. * Ejection Fraction = 60-65%. * There is mild concentric left ventricular hypertrophy. * The right ventricular systolic function is normal. * The left atrial size is normal. * Right atrial size is normal. * No significant valvular pathology. Procedure Details * A complete two-dimensional transthoracic echocardiogram was performed (2D, M-mode, Doppler and color flow Doppler). Left Ventricle * The left ventricle is normal in size. * There is mild concentric left ventricular hypertrophy. * Ejection Fraction = 60-65%. * Left ventricular systolic function is normal. * The left ventricular wall motion is normal. Right Ventricle * The right ventricle is normal size. * The right ventricular systolic function is normal. Atria * The left atrial size is normal. * Right atrial size is normal. * No ASD detected; PFO is not assessed. Mitral Valve * The mitral valve anatomy is normal. * Significant mitral regurgitation is absent. Tricuspid Valve * The tricuspid valve anatomy is normal. * Significant tricuspid regurgitation is absent. Aortic Valve * The aortic valve is not well visualized. * No hemodynamically significant valvular aortic stenosis. * There is no significant aortic regurgitation. Pulmonic Valve * The pulmonic valve is not well visualized. * There is no significant pulmonary regurgitation. Great Vessels * The aortic root and proximal ascending aorta are normal sized. Pericardium/Pleural * There is no pericardial effusion. MMode 2D Measurements and Calculations IVSd 1.0 cm IVSs 1.5 cm LVIDd 3.9 cm LVIDs 2.1 cm LVPWd 1.2 cm LVPWs 1.4 cm IVS/LVPW 0.89 FS 45.2 % EDV(Teich) 65.0 ml ESV(Teich) 14.8 ml EF(Teich) 77.2 % EDV(cubed) 58.3 ml ESV(cubed) 9.6 ml EF(cubed) 83.6 % % IVS thick 43.9 % % LVPW thick 22.2 % LV mass(C)d 138.9 grams LV mass(C)dI 76.0 grams/m\S\2 LV mass(C)s 98.9 grams LV mass(C)sI 54.1 grams/m\S\2 SV(Teich) 50.2 ml SI(Teich) 27.5 ml/m\S\2 SV(cubed) 48.7 ml SI(cubed) 26.7 ml/m\S\2 Ao root diam 2.8 cm Ao root area 6.1 cm\S\2 ACS 1.7 cm LA dimension 3.2 cm LA/Ao 1.2 LVAd ap4 32.0 cm\S\2 LVLd ap4 9.3 cm EDV(MOD-sp4) 91.6 ml EDV(sp4-el) 93.3 ml LVAs ap4 16.7 cm\S\2 LVLs ap4 7.2 cm ESV(MOD-sp4) 34.2 ml ESV(sp4-el) 32.8 ml EF(MOD-sp4) 62.7 % EF(sp4-el) 64.9 % LVAd ap2 23.7 cm\S\2 LVLd ap2 8.3 cm EDV(MOD-sp2) 60.8 ml EDV(sp2-el) 57.4 ml LVAs ap2 13.7 cm\S\2 LVLs ap2 6.5 cm ESV(MOD-sp2) 26.4 ml ESV(sp2-el) 24.5 ml EF(MOD-sp2) 56.5 % EF(sp2-el) 57.3 % LVLd %diff -12.46 % EDV(MOD-bp) 78.1 ml LVLs %diff -11.22 % ESV(MOD-bp) 31.6 ml EF(MOD-bp) 59.5 % SV(MOD-sp4) 57.4 ml SI(MOD-sp4) 31.4 ml/m\S\2 SV(MOD-sp2) 34.4 ml SI(MOD-sp2) 18.8 ml/m\S\2 SV(MOD-bp) 46.5 ml SI(MOD-bp) 25.4 ml/m\S\2 SV(sp4-el) 60.6 ml SI(sp4-el) 33.1 ml/m\S\2 SV(sp2-el) 32.9 ml SI(sp2-el) 18.0 ml/m\S\2 Doppler Measurements and Calculations MV E max dion 103.5 cm/sec MV A max dion 75.1 cm/sec MV E/A 1.4 MV dec time 0.21 sec Ao V2 max 153.6 cm/sec Ao max PG 9.4 mmHg Ao max PG (full) 3.8 mmHg LV V1 max PG 5.6 mmHg LV V1 max 118.4 cm/sec PA V2 max 93.2 cm/sec PA max PG 3.5 mmHg TR max dion 188.1 cm/sec
== END 2018-01-06 14:39 | disposition home or self-care (01) | DRG 639 ==
LOC: C.EDB 19:43 → C.MED 01-05 02:49 → ENRESERV 01-05 03:01
PROVIDERS: ADMIT Internal Medicine; ATTEND Internal Medicine
DX: E11.10 Type 2 diabetes mellitus with ketoacidosis without coma (principal); I10 Essential (primary) hypertension; J45.909 Unspecified asthma, uncomplicated; Z79.899 Other long term (current) drug therapy; Z82.49 Family history of ischemic heart disease and other diseases of the circulatory system; Z83.3 Family history of diabetes mellitus; Z81.8 Family history of other mental and behavioral disorders